=== PATIENT | male | born 1985 | race African-American/Black ===

== ENCOUNTER 2024-06-25 22:01 | Emergency (ER) | payer MEDICAID ==
[~2024-06-25] VITALS: Ht 185.4 cm; Wt 77.1 kg
[2024-06-25 22:09] VITALS: BP 120/42; PULSE 42; RESP 20; TEMP 98.5; O2SAT 97
--- NOTE | 2024-06-25 22:39 | NUR ---
DR. GOMEZ EVALUATING PT IN TRIAGE.
--- NOTE | 2024-06-25 23:02 | NUR ---
PT AMBULATED TO RESTROOM FOR URINE COLLECTION.
[2024-06-25] MEDS: KETOROLAC 30 MG/ML VIAL IM ONE (23:12)
[2024-06-25 23:16] LABS: BASOPHILS % (AUTO) 0.7 % (0.0-2.0); EOSINOPHILS # (AUTO) 0.1 K/uL (0-0.4); EOSINOPHILS % (AUTO) 2.1 % (0.0-4.0); HEMATOCRIT 53.9 % (36-52); HEMOGLOBIN 18.3 g/dL (12.0-18.0); LYMPHOCYTES # (AUTO) 1.8 K/uL (2.0-11.5); MEAN CORPUSCULAR HEMOGLOBIN 31 pg (27-31); MEAN CORPUSCULAR HGB CONC 34 g/dL (33-37); MEAN CORPUSCULAR VOLUME 90.1 fL (80-94); MONOCYTES # (AUTO) 0.5 K/uL (0.8-1.0); MONOCYTES % (AUTO) 8.6 % (1.7-9.3); NEUTROPHILS # (AUTO) 3.8 K/uL (1.8-7.7); NEUTROPHILS % (AUTO) 60.6 % (42.2-75.2); PLATELET COUNT (AUTO) 352 K/uL (140-450); RED BLOOD CELL COUNT(AUTO) 5.98 MIL/uL (4.20-6.10); RED CELL DISTRIBUTION WIDTH 13.5 % (11.6-13.7); WHITE BLOOD COUNT (AUTO) 6.3 K/uL (4.8-10.8)
[2024-06-25 23:18] LABS: APPEARANCE,URINE CLEAR (CLEAR); BILIRUBIN,URINE 1+ (NEGATIVE); BLOOD, URINE 1+ (NEGATIVE); COLOR,URINE YELLOW (YELLOW); LEUKOCYTE ESTERASE ,URINE NEGATIVE (NEGATIVE); NITRITE, URINE NEGATIVE (NEGATIVE); PROTEIN,URINE TRACE (NEGATIVE); UGLUCOSE NEGATIVE (NEGATIVE)
[2024-06-25 23:30] VITALS: BP 120/42; PULSE 42; RESP 20; TEMP 98.5; O2SAT 97
--- NOTE | 2024-06-25 23:30 | NUR ---
39M BIB AMBULATION, C/O RIGHT FLANK PAIN. DENIES N/V, TRAUMA TO THE ABDOMEN. STATES HE HAS HAD A STOMACH ULCER IN THE PAST AND IS AFRAID THAT IT IS THE CASE THIS TIME ALSO. DENIES PMHX NKA
[2024-06-25 23:32] LABS: ANION GAP 16.1 (8-16); CALCIUM 10.1 mg/dL (8.5-10.1); CARBON DIOXIDE 28.4 mmol/L (21-32); CREATININE 1.3 mg/dL (0.6-1.3); POTASSIUM 3.5 mmol/L (3.5-5.1)
[2024-06-25 23:32] LABS: ICTOTEST NEGATIVE (NEGATIVE)
[2024-06-25 23:33] LABS: BACTERIA,URINE FEW /HPF (None Seen); MUCUS,URINE 1+ /LPF (None Seen); SQUAMOUS EPITHELIAL CELL,UR 0-3 (FEW) /LPF (0-3 (FEW)); WBC,URINE 0-5 /HPF (0-5)
[2024-06-25 23:38] LABS: ALBUMIN 4.2 g/dL (3.4-5.0); BILIRUBIN,DIRECT 0.2 mg/dL (0.0-0.3); TOTAL BILIRUBIN 0.8 mg/dL (0.0-1.0)
[2024-06-26] MEDS ORDERED: ACET-503 PO (00:44)
--- NOTE | 2024-06-26 00:53 | NUR ---
Patient discharged with v/s stable. Written and verbal after care instructions given and explained. Patient verbalized understanding. Ambulatory with steady gait. All questions addressed prior to discharge. Advised to follow up with PMD.
[2024-06-26] MEDS ORDERED: OMEP20EC11 PO (20:44)
== END 2024-06-26 00:50 | disposition home or self-care (01) ==
LOC: MED 22:01
DX: R10.9 Unspecified abdominal pain (principal); R11.2 Nausea with vomiting, unspecified
CPT/HCPCS: 36415; 76705; 80048; 80076; 81001; 83690; 85025; 96372; 99285; J1885; Q0092

== ENCOUNTER 2024-06-26 17:35 | Inpatient (IN) | payer MEDICAID, OTHER ==
[~2024-06-26] VITALS: Ht 185.4 cm; Wt 86.2 kg
[~2024-06-26 17:35] MED LIST: ACET-503 PO
[2024-06-26 17:39] VITALS: BP 111/84; PULSE 81; RESP 17; TEMP 97.3; O2SAT 100
[2024-06-26 18:17] LABS: HEMATOCRIT 47.5 % (36-52); MEAN CORPUSCULAR HEMOGLOBIN 30 pg (27-31); MEAN CORPUSCULAR HGB CONC 34 g/dL (33-37); MEAN CORPUSCULAR VOLUME 90.4 fL (80-94); PLATELET COUNT (AUTO) 342 K/uL (140-450); RED BLOOD CELL COUNT(AUTO) 5.26 MIL/uL (4.20-6.10); RED CELL DISTRIBUTION WIDTH 13.3 % (11.6-13.7); WHITE BLOOD COUNT (AUTO) 9.3 K/uL (4.8-10.8)
[2024-06-26] MEDS: ONDANSETRON 4 MG/2 ML VIAL IVP ONE (18:22)
[2024-06-26] MEDS: PANTOPRAZOLE 40 MG INJ VIAL IVP ONE (18:23)
[2024-06-26] MEDS: NACL 0.9% 1,000 ML IV SCH ×2 (18:25→23:27)
[2024-06-26 18:26] LABS: ANION GAP 13.4 (8-16); CARBON DIOXIDE 26.6 mmol/L (21-32); CREATININE 1.3 mg/dL (0.6-1.3)
[2024-06-26 18:32] LABS: ALBUMIN 3.3 g/dL (3.4-5.0); BILIRUBIN,DIRECT 0.2 mg/dL (0.0-0.3); TOTAL BILIRUBIN 0.9 mg/dL (0.0-1.0); TOTAL PROTEIN, SERUM 6.6 g/dL (6.4-8.2)
[2024-06-26] MEDS: OCTREOTIDE ACETATE 100 MCG/ML VIAL IV ONE (18:47)
[2024-06-26 18:48] LABS: BASOPHILS % (MANUAL) 0 % (0-2); EOSINOPHILS % (MANUAL) 2 % (0-4); LYMPHOCYTES % (MANUAL) 45 % (20-46); MONOCYTES % (MANUAL) 3 % (5-12); PLATELET ESTIMATE ADEQUATE
[2024-06-26 18:59] LABS: INR 1.06 (0.8-1.2); PROTHROMBIN TIME 11.1 secs (10.8-13.4)
[2024-06-26] MEDS: OCTREOTIDE ACETATE 1.25 MG in NACL 0.9% 250 ML IV SCH (19:19)
[2024-06-26] MEDS: OCTREOTIDE ACETATE 1000 MCG/5 ML VIAL ONE ×2 (19:24→19:25)
[2024-06-26] MEDS ORDERED: OMEP20EC11 PO (20:44)
[2024-06-26] MEDS ORDERED: PANTOPRAZOLE 40 MG INJ VIAL ONE (21:50)
[2024-06-26] MEDS ORDERED: ONDANSETRON 4 MG/2 ML VIAL IVP PRN (22:00)
[2024-06-26] MEDS: NACL 0.9% 1,000 ML IV ONE (22:00)
[2024-06-26] MEDS: PANTOPRAZOLE 80 MG in NACL 0.9% 100 ML IV SCH (22:07)
[2024-06-26 22:08] LABS: FLU A ANTIGEN negative (NEGATIVE); FLU B ANTIGEN negative (NEGATIVE)
[2024-06-26 22:39] LABS: BASOPHILS % (AUTO) 0.6 % (0.0-2.0); EOSINOPHILS # (AUTO) 0.1 K/uL (0-0.4); EOSINOPHILS % (AUTO) 0.9 % (0.0-4.0); HEMATOCRIT 41.9 % (36-52); HEMOGLOBIN 13.9 g/dL (12.0-18.0); LYMPHOCYTES # (AUTO) 2.3 K/uL (2.0-11.5); LYMPHOCYTES % (AUTO) 30.8 % (20.5-51.1); MEAN CORPUSCULAR HEMOGLOBIN 30 pg (27-31); MEAN CORPUSCULAR HGB CONC 33 g/dL (33-37); MEAN CORPUSCULAR VOLUME 90.7 fL (80-94); MONOCYTES # (AUTO) 0.4 K/uL (0.8-1.0); NEUTROPHILS # (AUTO) 4.6 K/uL (1.8-7.7); NEUTROPHILS % (AUTO) 61.7 % (42.2-75.2); PLATELET COUNT (AUTO) 302 K/uL (140-450); RED BLOOD CELL COUNT(AUTO) 4.62 MIL/uL (4.20-6.10); RED CELL DISTRIBUTION WIDTH 13.3 % (11.6-13.7); WHITE BLOOD COUNT (AUTO) 7.4 K/uL (4.8-10.8)
[2024-06-26] MEDS ORDERED: THIAMINE 200 MG/2 ML VIAL IV SCH (23:30)
[2024-06-26] MEDS ORDERED: LORazepam 2 MG/ML VIAL IVP PRN (23:30)
[2024-06-27] VITALS (17 sets, daily range): BP systolic 96–141; BP diastolic 55–86; PULSE 41–68; RESP 14–29; TEMP 97.1–98.9; O2SAT 98–100
[2024-06-27 02:46] LABS: BASOPHILS # (AUTO) 0.1 K/uL (0.00-0.22); BASOPHILS % (AUTO) 0.8 % (0.0-2.0); EOSINOPHILS # (AUTO) 0.2 K/uL (0-0.4); EOSINOPHILS % (AUTO) 2.4 % (0.0-4.0); HEMOGLOBIN 12.9 g/dL (12.0-18.0); MEAN CORPUSCULAR HEMOGLOBIN 30 pg (27-31); MEAN CORPUSCULAR HGB CONC 34 g/dL (33-37); MEAN CORPUSCULAR VOLUME 89.6 fL (80-94); MONOCYTES # (AUTO) 0.7 K/uL (0.8-1.0); MONOCYTES % (AUTO) 9.4 % (1.7-9.3); NEUTROPHILS # (AUTO) 3.1 K/uL (1.8-7.7); NEUTROPHILS % (AUTO) 44.4 % (42.2-75.2); PLATELET COUNT (AUTO) 278 K/uL (140-450); RED BLOOD CELL COUNT(AUTO) 4.24 MIL/uL (4.20-6.10); RED CELL DISTRIBUTION WIDTH 13.2 % (11.6-13.7); WHITE BLOOD COUNT (AUTO) 7.1 K/uL (4.8-10.8)
[2024-06-27 06:42] LABS: BASOPHILS % (AUTO) 0.7 % (0.0-2.0); EOSINOPHILS # (AUTO) 0.2 K/uL (0-0.4); EOSINOPHILS % (AUTO) 3.3 % (0.0-4.0); HEMATOCRIT 37.4 % (36-52); HEMOGLOBIN 12.8 g/dL (12.0-18.0); LYMPHOCYTES % (AUTO) 45.1 % (20.5-51.1); MEAN CORPUSCULAR HEMOGLOBIN 31 pg (27-31); MEAN CORPUSCULAR HGB CONC 34 g/dL (33-37); MEAN CORPUSCULAR VOLUME 89.4 fL (80-94); MONOCYTES # (AUTO) 0.6 K/uL (0.8-1.0); MONOCYTES % (AUTO) 9.1 % (1.7-9.3); NEUTROPHILS # (AUTO) 2.8 K/uL (1.8-7.7); NEUTROPHILS % (AUTO) 41.8 % (42.2-75.2); PLATELET COUNT (AUTO) 283 K/uL (140-450); RED BLOOD CELL COUNT(AUTO) 4.19 MIL/uL (4.20-6.10); RED CELL DISTRIBUTION WIDTH 13.1 % (11.6-13.7); WHITE BLOOD COUNT (AUTO) 6.7 K/uL (4.8-10.8)
[2024-06-27 06:50] LABS: ANION GAP 10.8 (8-16); CALCIUM 7.7 mg/dL (8.5-10.1); CARBON DIOXIDE 25.2 mmol/L (21-32); CREATININE 1.2 mg/dL (0.6-1.3)
[2024-06-27 06:57] LABS: MAGNESIUM 1.8 mg/dL (1.8-2.4); PHOSPHORUS 2.6 mg/dL (2.5-4.9)
[2024-06-27] MEDS: MIDAZOLAM 5 MG/5 ML VIAL IV ONE (12:48)
[2024-06-27] MEDS: fentaNYL citrate 0.05 MG/ML VIAL IVP ONE (12:49)
[2024-06-27] MEDS: diphenhydrAMINE 50 MG/ML VIAL IVP ONE (12:57)
[2024-06-27] MEDS: EPINEPHrine PFS 0.1 MG/ML SYR IVP ONE (13:00)
[2024-06-27] MEDS: MIDAZOLAM 5 MG/5 ML VIAL ONE (13:04)
[2024-06-27] MEDS: diphenhydrAMINE 50 MG/ML VIAL ONE (13:04)
[2024-06-27] MEDS: fentaNYL citrate 0.05 MG/ML VIAL ONE (13:04)
[2024-06-27] MEDS: SUCRALFATE 1 GM TAB PO SCH (17:15)
[2024-06-27] MEDS: LANSOPRAZOLE 30 MG CAPDR PO SCH (17:16)
[2024-06-27] MEDS: cefTRIAXone 1,000 MG VIAL ONE (20:34)
[2024-06-28] VITALS (16 sets, daily range): BP systolic 91–131; BP diastolic 49–73; PULSE 42–67; RESP 14–24; TEMP 98.1–98.7; O2SAT 98–100
[2024-06-28 05:12] LABS: BASOPHILS % (AUTO) 0.6 % (0.0-2.0); EOSINOPHILS # (AUTO) 0.3 K/uL (0-0.4); EOSINOPHILS % (AUTO) 5.1 % (0.0-4.0); HEMATOCRIT 34.4 % (36-52); HEMOGLOBIN 11.6 g/dL (12.0-18.0); LYMPHOCYTES # (AUTO) 2.9 K/uL (2.0-11.5); LYMPHOCYTES % (AUTO) 48.6 % (20.5-51.1); MEAN CORPUSCULAR HEMOGLOBIN 31 pg (27-31); MEAN CORPUSCULAR HGB CONC 34 g/dL (33-37); MEAN CORPUSCULAR VOLUME 90.4 fL (80-94); MONOCYTES # (AUTO) 0.5 K/uL (0.8-1.0); MONOCYTES % (AUTO) 7.5 % (1.7-9.3); NEUTROPHILS # (AUTO) 2.3 K/uL (1.8-7.7); NEUTROPHILS % (AUTO) 38.2 % (42.2-75.2); PLATELET COUNT (AUTO) 265 K/uL (140-450); RED BLOOD CELL COUNT(AUTO) 3.81 MIL/uL (4.20-6.10); RED CELL DISTRIBUTION WIDTH 12.9 % (11.6-13.7); WHITE BLOOD COUNT (AUTO) 6.1 K/uL (4.8-10.8)
[2024-06-28 05:28] LABS: ANION GAP 9.6 (8-16); CALCIUM 8.1 mg/dL (8.5-10.1); CARBON DIOXIDE 26.2 mmol/L (21-32); CREATININE 1.2 mg/dL (0.6-1.3); POTASSIUM 3.8 mmol/L (3.5-5.1)
[2024-06-28] MEDS: PANTOPRAZOLE 40 MG INJ VIAL IVP SCH (20:28)
[2024-06-29] VITALS: BP 134/68; PULSE 44; RESP 21; TEMP 97.9; O2SAT 100
[2024-06-29 04:00] VITALS: BP 116/62; PULSE 42; RESP 26; TEMP 98.2; O2SAT 100
[2024-06-29 07:11] VITALS: O2SAT 97
[2024-06-29 08:00] VITALS: BP 146/75; PULSE 42; RESP 21; TEMP 98; O2SAT 98
[2024-06-29] MEDS ORDERED: SUCR1TAB56 PO (09:57)
[2024-06-29] MEDS ORDERED: PANT40EC PO (09:57)
[2024-06-29 10:51] VITALS: BP 133/76; PULSE 56; RESP 21; TEMP 98
== END 2024-06-29 11:34 | disposition home or self-care (01) | DRG 241 ==
LOC: MED 17:35 → MTU 22:13 → MIC 06-27 13:55
PROVIDERS: ADMIT Student in an Organized Health Care Education/Training Program; ATTEND Student in an Organized Health Care Education/Training Program
PROC: 0W3P8ZZ Control Bleeding in Gastrointestinal Tract, Via Natural or Artificial Opening Endoscopic (ICD-10-PCS; principal; 2024-06-27 11:00)
PROC: 0DB78ZX Excision of Stomach, Pylorus, Via Natural or Artificial Opening Endoscopic, Diagnostic (ICD-10-PCS; 2024-06-27 11:00)
DX: K25.4 Chronic or unspecified gastric ulcer with hemorrhage (principal); E44.0 Moderate protein-calorie malnutrition; D64.9 Anemia, unspecified; Z20.822 Contact with and (suspected) exposure to COVID-19; F10.20 Alcohol dependence, uncomplicated; Z79.899 Other long term (current) drug therapy; Z87.891 Personal history of nicotine dependence; Z68.25 Body mass index [BMI] 25.0-25.9, adult
CPT/HCPCS: 36415; 71045; 80048; 80076; 83605; 83690; 83735; 84100; 84443; 85025; 85610; 86677; 86886; 86900; 86901; 87040; 87081; 93005; 96365; 96375; 97116; 97163-GP; 99291; G0482; J0171; J0696; J1200; J2250; J2354; J2405; J2470; J3010; J7030; J7060; Q0092; Q9967